=== PATIENT | male | born 1970 | race Caucasian/White ===

== ENCOUNTER 2022-05-26 15:40 | Emergency (ER) | payer OTHER ==
[2022-05-26 15:56] VITALS: RESP 18; TEMP 98.8; BMI 30.5
[2022-05-26 16:32] LABS: HEMATOCRIT 48.5 % (35.4-49); HEMOGLOBIN 17.1 G/dL (11.7-16.9); MCH 32.5 pg (25.7-33.7); MCHC 35.2 g/dl (32.0-35.9); MEAN CELL VOLUME 92.4 fl (80-96); MEAN PLT VOLUME 8.9 fl (7.5-11.1); PLATELET COUNT 151.2 10^3/uL (134-434); RBC 5.25 10^6/uL (4.00-5.60); RDW 13.9 % (11.9-15.9); WHITE BLOOD COUNT 8.3 10^3/uL (4.0-10.8)
[2022-05-26 16:34] LABS: ALBUMIN 4.5 g/dl (3.4-5.0); BILIRUBIN,TOTAL 1.1 mg/dl (0.2-1); CALCIUM 9.4 mg/dl (8.5-10); CREATININE 1.3 mg/dl (0.55-1.3); TOT PROT 7.3 g/dl (6.4-8.2)
[2022-05-26 16:55] LABS: PLATELET ESTIMATE SLT DECREASE
[2022-05-26 17:33] VITALS: BP 122/84; PULSE 71
== END 2022-05-26 18:35 | disposition home or self-care (01) ==
LOC: FER 15:40
DX: N13.2 Hydronephrosis with renal and ureteral calculous obstruction (principal)
CPT/HCPCS: 36415; 74176-TC; 80053; 81003; 81015; 85027; 87086; 99284-25

== ENCOUNTER 2023-06-03 19:09 | Emergency (ER) | payer OTHER ==
[2023-06-03 19:20] VITALS: BP 160/90; PULSE 59; RESP 16; TEMP 98; BMI 30.7
[2023-06-03] MEDS ORDERED: ONDANSETRON 4 MG/2 ML VIAL IVPUSH ONE (19:42)
[2023-06-03] MEDS ORDERED: KETOROLAC TROMETHAMINE 30 MG/1 ML VIAL IVPUSH ONE (19:42)
[2023-06-03] MEDS ORDERED: ONDANSETRON 4 MG/2 ML VIAL ONE (19:43)
[2023-06-03] MEDS ORDERED: KETOROLAC TROMETHAMINE 30 MG/1 ML VIAL ONE (19:43)
[2023-06-03 19:55] LABS: HEMOGLOBIN 17.1 G/dL (11.7-16.9); MCH 31.4 pg (25.7-33.7); MCHC 34.3 g/dl (32.0-35.9); MEAN CELL VOLUME 91.7 fl (80-96); PLATELET COUNT 170.2 10^3/uL (134-434); RBC 5.45 10^6/uL (4.00-5.60); RDW 14.5 % (11.9-15.9); WHITE BLOOD COUNT 11.8 10^3/uL (4.0-10.8)
[2023-06-03 20:08] LABS: ALBUMIN 4.6 g/dl (3.4-5.0); BILIRUBIN,TOTAL 0.6 mg/dl (0.2-1); CALCIUM 9.8 mg/dl (8.5-10.1); CREATININE 1.2 mg/dl (0.6-1.3); POTASSIUM 4.5 mmol/L (3.5-5.1)
[2023-06-03 20:14] LABS: PLATELET ESTIMATE ADEQUATE
[2023-06-03] MEDS ORDERED: IBUPROFEN 600 MG TABLET (FP) PO ONE (21:43)
== END 2023-06-03 21:44 | disposition home or self-care (01) ==
LOC: FER 19:09
PROC: 3E0333Z Introduction of Anti-inflammatory into Peripheral Vein, Percutaneous Approach (ICD-10-PCS; principal; 2023-06-03)
PROC: 3E033GC Introduction of Other Therapeutic Substance into Peripheral Vein, Percutaneous Approach (ICD-10-PCS; 2023-06-03)
DX: N20.0 Calculus of kidney (principal); R10.32 Left lower quadrant pain
CPT/HCPCS: 36415; 74176-TC; 80053; 81003; 81015; 85027; 87086; 99284-25

== ENCOUNTER 2023-08-12 06:50 | Emergency (ER) | payer OTHER ==
[2023-08-12 07:05] VITALS: TEMP 97.9; BMI 30.7
[2023-08-12 07:48] LABS: EPITHELIAL CELLS 0-5 /hpf
[2023-08-12 07:49] LABS: URINE MUCUS FEW
[2023-08-12] MEDS ORDERED: KETOROLAC TROMETHAMINE 30 MG/1 ML VIAL ONE (07:53)
[2023-08-12] MEDS ORDERED: ONDANSETRON 4 MG/2 ML VIAL ONE (07:54)
[2023-08-12] MEDS: SODIUM CHLORIDE 1,000 ML IV STA (08:01)
[2023-08-12] MEDS: ONDANSETRON 4 MG/2 ML VIAL IVPUSH ONE (08:01)
[2023-08-12] MEDS: KETOROLAC TROMETHAMINE 30 MG/1 ML VIAL IVPUSH ONE (08:01)
[2023-08-12 08:40] LABS: HEMATOCRIT 49.9 % (35.4-49); HEMOGLOBIN 16.9 G/dL (11.7-16.9); MCH 31.4 pg (25.7-33.7); MCHC 33.9 g/dl (32.0-35.9); MEAN CELL VOLUME 92.6 fl (80-96); MEAN PLT VOLUME 9.7 fl (7.5-11.1); PLATELET COUNT 143.8 10^3/uL (134-434); RBC 5.39 10^6/uL (4.00-5.60); RDW 13.9 % (11.9-15.9); WHITE BLOOD COUNT 7.2 10^3/uL (4.0-10.8)
[2023-08-12 08:45] LABS: PLATELET ESTIMATE ADEQUATE
[2023-08-12 09:34] LABS: ALBUMIN 4.7 g/dl (3.4-5.0); BILIRUBIN,TOTAL 0.4 mg/dl (0.2-1); CALCIUM 9.8 mg/dl (8.5-10.1); CREATININE 1.3 mg/dl (0.6-1.3); POTASSIUM 4.1 mmol/L (3.5-5.1); TOT PROT 7.2 g/dl (6.4-8.2)
[2023-08-12 11:01] VITALS: BP 140/82; PULSE 60; RESP 18
== END 2023-08-12 11:01 | disposition home or self-care (01) ==
LOC: FER 06:50
PROC: 3E0333Z Introduction of Anti-inflammatory into Peripheral Vein, Percutaneous Approach (ICD-10-PCS; principal; 2023-08-12)
PROC: 3E033GC Introduction of Other Therapeutic Substance into Peripheral Vein, Percutaneous Approach (ICD-10-PCS; 2023-08-12)
PROC: 3E0337Z Introduction of Electrolytic and Water Balance Substance into Peripheral Vein, Percutaneous Approach (ICD-10-PCS; 2023-08-12)
DX: R10.31 Right lower quadrant pain (principal); R11.0 Nausea; N20.0 Calculus of kidney
CPT/HCPCS: 36415; 74176-TC; 80053; 81003; 81015; 85027; 87086; 99284-25

== ENCOUNTER 2023-08-17 17:28 | Emergency (ER) | payer OTHER ==
[2023-08-17 17:45] VITALS: BP 129/93; PULSE 96; RESP 20; TEMP 98; BMI 33.5
[2023-08-17] MEDS ORDERED: ACETAMINOPHEN INJECTION 100 ML IVPB ONE (18:21)
[2023-08-17] MEDS ORDERED: ONDANSETRON 4 MG/2 ML VIAL ONE (18:22)
[2023-08-17] MEDS: ACETAMINOPHEN 1000 MG/100 ML BAG IVPB ONE (18:55)
[2023-08-17] MEDS: SODIUM CHLORIDE 0.9% 500 ML INFUS.BAG IV ONE (18:55)
[2023-08-17] MEDS: ONDANSETRON 4 MG/2 ML VIAL IVPUSH ONE (18:55)
[2023-08-17 19:20] LABS: HEMATOCRIT 48.2 % (35.4-49); MCH 31.2 pg (25.7-33.7); MCHC 33.3 g/dl (32.0-35.9); MEAN CELL VOLUME 93.8 fl (80-96); MEAN PLT VOLUME 9.5 fl (7.5-11.1); PLATELET COUNT 146.9 10^3/uL (134-434); RBC 5.14 10^6/uL (4.00-5.60); RDW 13.6 % (11.9-15.9)
[2023-08-17 19:30] LABS: ALBUMIN 4.6 g/dl (3.4-5.0); BILIRUBIN,TOTAL 0.7 mg/dl (0.2-1); CALCIUM 9.7 mg/dl (8.5-10.1); CREATININE 1.6 mg/dl (0.6-1.3); POTASSIUM 4.4 mmol/L (3.5-5.1); TOT PROT 6.9 g/dl (6.4-8.2)
[2023-08-17] MEDS ORDERED: TAMSULOSIN HCL 0.4 MG CAP ONE (19:36)
[2023-08-17] MEDS: TAMSULOSIN HCL 0.4 MG CAP PO ONE (19:37)
[2023-08-17] MEDS: SODIUM CHLORIDE 1,000 ML IV ONE (20:48)
[2023-08-17 21:10] LABS: PLATELET ESTIMATE ADEQUATE
== END 2023-08-17 21:52 | disposition home or self-care (01) ==
LOC: FER 17:28
PROC: 3E030NZ Introduction of Analgesics, Hypnotics, Sedatives into Peripheral Vein, Open Approach (ICD-10-PCS; principal; 2023-08-17)
PROC: 3E030GC Introduction of Other Therapeutic Substance into Peripheral Vein, Open Approach (ICD-10-PCS; 2023-08-17)
PROC: 3E0337Z Introduction of Electrolytic and Water Balance Substance into Peripheral Vein, Percutaneous Approach (ICD-10-PCS; 2023-08-17)
DX: N13.2 Hydronephrosis with renal and ureteral calculous obstruction (principal); R79.89 Other specified abnormal findings of blood chemistry; R68.83 Chills (without fever); R10.9 Unspecified abdominal pain; R11.0 Nausea
CPT/HCPCS: 36415; 74176-TC; 80053; 85027; 87086; 93005; 99285-25; J0131

== ENCOUNTER 2024-05-18 13:41 | Emergency (ER) | payer OTHER ==
[2024-05-18] MEDS ORDERED: TETRACAINE 0.5% OPHTH SOLN 2 ML BOTTLE ONE (13:56)
[2024-05-18 13:59] VITALS: BP 131/81; PULSE 88; RESP 18; TEMP 98.7; BMI 32.3
== END 2024-05-18 14:55 | disposition home or self-care (01) ==
LOC: FER 13:41
DX: S05.02XA Injury of conjunctiva and corneal abrasion without foreign body, left eye, initial encounter (principal); W22.8XXA Striking against or struck by other objects, initial encounter
CPT/HCPCS: 99283-25